=== PATIENT | female | born 1980 | race Caucasian/White ===

== ENCOUNTER → 2020-12-03 08:52 | Outpatient (BNVA) | payer OTHER, SELFPAY | PROVIDERS: Family Provider Family Medicine; Visit Provider Nurse Practitioner Women's Health | DX: Z01.419 Encounter for gynecological examination (general) (routine) without abnormal findings (principal); N92.0 Excessive and frequent menstruation with regular cycle | CPT/HCPCS: 84443; 84702; 85025; 88175 ==

== ENCOUNTER → 2020-12-14 15:36 | Outpatient (BNVA) | payer OTHER, SELFPAY | PROVIDERS: Family Provider Family Medicine; Visit Provider Nurse Practitioner Women's Health | DX: N92.0 Excessive and frequent menstruation with regular cycle (principal) | CPT/HCPCS: 76830 ==

== ENCOUNTER → 2021-02-17 09:04 | Outpatient (BNVA) | payer OTHER, SELFPAY | PROVIDERS: Family Provider Family Medicine; Visit Provider Obstetrics & Gynecology | DX: D25.9 Leiomyoma of uterus, unspecified (principal) | CPT/HCPCS: 87635 ==

== ENCOUNTER 2021-02-23 08:28 | Observation (INO) | payer OTHER, SELFPAY ==
[2021-02-21 11:32] LABS: Basophils # 0.1 10^3/uL (0.0-0.1); Basophils % 0.9 %; Eosinophils # 0.1 10^3/uL (0.0-0.8); Eosinophils % 0.9 %; Hematocrit 39.1 % (37.0-47.0); Lymphocytes # 1.9 10^3/uL (0.8-4.8); Lymphocytes % 27.8 %; Mean Corpuscular HGB Conc 30.7 g/dL (30.0-36.0); Mean Corpuscular Hemoglobin 26.2 pg (28.0-34.0); Mean Corpuscular Volume 85.4 fL (81-99); Mean Platelet Volume 10.7 fL (7.4-10.4); Monocytes # 0.5 10^3/uL (0.2-0.9); Monocytes % 6.5 %; Neutrophils # 4.41 10^3/uL (1.8-7.7); Neutrophils % 63.6 %; Nucleated Red Blood Cells % 0 %; Platelet Count 324 10^3/cmm (130-400); Red Blood Count 4.58 10^6/uL (4.1-5.3); Red Cell Distribution Width 14.3 % (12.1-15.1); White Blood Count 6.9 10^3/uL (4.0-10.0)
[2021-02-21 11:34] VITALS: BMI 26.7
[2021-02-21 11:44] LABS: Bilirubin Urine Neg (Negative); Blood Urine 2+ (Negative); Glucose Urine UA Norm (Normal); Ketones Urine Negative (Negative); Leukocyte Esterase Urine Negative (Negative); Nitrate Urine Negative (Negative); Protein Urine Neg (Negative); Urine Appearance Clear (CLEAR); Urine Color Straw (Yellow); Urobilinogen Urine Norm (Negative); pH Urine 5 (5-7)
[2021-02-21 11:45] LABS: Add Urine Microscopic? YES
[2021-02-21 11:52] LABS: Anion Gap 13.1 (5-19); Blood Urea Nitrogen 12 mg/dL (6-20); Carbon Dioxide 25 mmol/L (22-29); Chloride 105 mmol/L (98-107); Glomerular Filtration Rate 137.4 mL/min (90-130); Glucose 95 mg/dL (65-115); Osmolality Calculated 288 mOsm/kg (285-295); Potassium 4.1 mmol/L (3.5-5.1); Sodium 139 mmol/L (136-145)
[2021-02-21 11:56] LABS: Add Urine Culture? No; Bacteria Urine 1+ /hpf; Mucus Urine 1+ /hpf; RBC Urine 0-4 /hpf (0-2); Squamous Epithelial Cell Urine RARE /hpf (0-5)
--- NOTE | 2021-02-21 14:46 | P.ANESASSM_ITS ---
Pre-Anesthetic Assessment Pre-Anesthetic Assessment: Height/Weight: Height 1.6 m Weight 68.492 kg Proposed Procedure: Operation Date: 02/23/21 07:00 Proposed Procedures p Total Vaginal Hysterectomy 18035 D25.9 N93.9 R10.2 N94.10(Not Applicable) - Scott Chadwick MD Was Beta Nasim taken within 24 hours: N/A Was Clonidine taken within 24 hours: N/A Social: Social History: No alcohol and No tobacco Exam: Pre-Anes Outpt Exam: alert, oriented x 3, clear to auscultation bilaterally and regular rate & rhythm Airway: Submandibular: WNL Cervical ROM: WNL MP: 2 Dentition: Full History/ROS: No significant history except as noted CV/HEM: CV/HEM: Anemia Anesthetic Plan: ASA status: 2 Anesthesia: General Risk of > 500 ml blood loss (7ml/kg in children): No PFSH Anesthesia PFSH: Medical History Abnormal uterine bleeding (AUB) Chronic pelvic pain in female Dyspareunia in female Fibrocystic breast changes of both breasts Fibroid, uterine Heavy menses No pertinent past medical history neghx: htn,dm,thyroid,dvt/pe PCP: Dr. Colin PCB (post coital bleeding) Surgical History History of surgery on right wrist (~2013) Lump removed from wrist History of tonsillectomy and adenoidectomy at age 19 Family History Grandmother Breast cancer Maternal--dx age 69 Thyroid disease Paternal Family/Other Breast cancer Maternal Aunt--dx age late 50's Father Diabetes Heart disease Hypercholesteremia Hypertension Denies family history of Colon cancer Ovarian cancer Uterine cancer Stroke Social History (Updated 02/21/21 @ 08:09 by Kacie Pickett RN) Smoking and tobacco status: former smoker Quit status (tobacco): has quit using tobacco Former quit date comment: 02/08/2021 Alcohol intake: current Alcohol intake frequency: holidays/special occasions only Alcohol type: hard liquor Substance/Drug Use: never Female Reproductive History: Date of last menstrual period: 01/31/21 Data Anesthesia CBC & Chem 7: 02/21/21 11:05 02/21/21 11:05 Other Labs: Laboratory Results - last 48 hr 02/21/21 02/21/21 02/21/21 11:05 11:05 11:05 WBC 6.9 RBC 4.58 Hgb 12.0 Hct 39.1 MCV 85.4 MCH 26.2 L MCHC 30.7 RDW 14.3 Plt Count 324 MPV 10.7 H Neut % (Auto) 63.6 Lymph % (Auto) 27.8 [place] % (Auto) 6.5 Eos % (Auto) 0.9 Baso % (Auto) 0.9 Neut # (Auto) 4.41 Lymph # (Auto) 1.9 [place] # (Auto) 0.5 Eos # (Auto) 0.1 Baso # (Auto) 0.1 Nucleated RBC % (auto) 0 Nucleated RBCs # 0.0 Sodium 139 Potassium 4.1 Chloride 105 Carbon Dioxide 25 Anion Gap 13.1 BUN 12 Creatinine 0.5 GFR Calculation 137.4 H Glucose 95 Calculated Osmolality 288 Calcium 9.0 Urine Color Urine Appearance Urine pH Ur Specific Wagner Urine Protein Urine Glucose (UA) Urine Ketones Urine Blood Urine Nitrate Urine Bilirubin Urine Urobilinogen Ur Leukocyte Esterase Urine RBC Urine WBC Ur Squamous Epith Cells Amorphous Sediment Urine Bacteria Urine Mucus Blood Type A Positive Rho(D) Type Positive / 4+ Antibody Screen Negative 02/21/21 11:15 WBC RBC Hgb Hct MCV MCH MCHC RDW Plt Count MPV Neut % (Auto) Lymph % (Auto) [place] % (Auto) Eos % (Auto) Baso % (Auto) Neut # (Auto) Lymph # (Auto) [place] # (Auto) Eos # (Auto) Baso # (Auto) Nucleated RBC % (auto) Nucleated RBCs # Sodium Potassium Chloride Carbon Dioxide Anion Gap BUN Creatinine GFR Calculation Glucose Calculated Osmolality Calcium Urine Color Straw Urine Appearance Clear Urine pH 5 Ur Specific Wagner 1.020 Urine Protein Neg Urine Glucose (UA) Norm Urine Ketones Negative Urine Blood 2+ H Urine Nitrate Negative Urine Bilirubin Neg Urine Urobilinogen Norm Ur Leukocyte Esterase Negative Urine RBC 0-4 H Urine WBC None Ur Squamous Epith Cells Rare Amorphous Sediment Not Reportable Urine Bacteria 1+ H Urine Mucus 1+ Blood Type Rho(D) Type Antibody Screen Cardiac Studies: No Data to Display
[2021-02-23] VITALS (17 sets, daily range): BP systolic 93–140; BP diastolic 53–83; PULSE 60–97; RESP 14–19; TEMP 36.4–37; O2SAT 96–100
[2021-02-23] MEDS: sodium chloride 0.9% 500 ML IV (06:25)
[2021-02-23 06:28] LABS: OR HCG Qualitative Urine Negative (Negative)
[2021-02-23] MEDS: scopolamine 1.5 Patch 1 PATCH TRANSDERMA (06:29)
--- NOTE | 2021-02-23 06:46 | W.PM.OPSUD ---
Surgery/Procedure H&P Update DATE OF PROCEDURE: February 23, 2021 DATE H&P PERFORMED: 02/21/21 H&P UPDATE INFORMATION: I have reviewed H&P completed within last 30 days, I have examined patient prior to procedure and No changes to prior documentation PREOP DIAGNOSIS: Uterine fibroid, chronic pelvic pain, abnormal uterine bleeding, dyspareuni PLANNED PROCEDURE: Operation Date: 02/23/21 07:00 Proposed Procedures p Total Vaginal Hysterectomy 47325 D25.9 N93.9 R10.2 N94.10(Not Applicable) - Scott Chadwick MD
[2021-02-23] MEDS: ceFOXitin 2,000 MG in sodium chloride 0.9% (plus) 50 ML 100 MG IV (07:02)
--- NOTE | 2021-02-23 07:20 | P.ANESUD_ITS ---
Pre-Anesthetic Update Pre-Anesthetic Assessment: Date of Surgery/Procedure: 02/23/21 Preop Hilary gnosis: Uterine fibroid, chronic pelvic pain, abnormal uterine bleeding, dyspareuni Proposed Procedure: Operation Date: 02/23/21 07:00 Proposed Procedures p Total Vaginal Hysterectomy 47760 D25.9 N93.9 R10.2 N94.10(Not Applicable) - Scott Chadwick MD Any changes to Pre-Anesthetic Assessment?: No Last Intake: Intake Last Liquid Date 02/22/21 Last Liquid Time 19:30 Last Solid Date 02/22/21 Last Solid Time 19:30 Labs Last 48hrs: Laboratory Results - last 48 hr 02/21/21 02/21/21 02/21/21 11:05 11:05 11:05 WBC 6.9 RBC 4.58 Hgb 12.0 Hct 39.1 MCV 85.4 MCH 26.2 L MCHC 30.7 RDW 14.3 Plt Count 324 MPV 10.7 H Neut % (Auto) 63.6 Lymph % (Auto) 27.8 [place] % (Auto) 6.5 Eos % (Auto) 0.9 Baso % (Auto) 0.9 Neut # (Auto) 4.41 Lymph # (Auto) 1.9 [place] # (Auto) 0.5 Eos # (Auto) 0.1 Baso # (Auto) 0.1 Nucleated RBC % (a uto) 0 Nucleated RBCs # 0.0 Sodium 139 Potassium 4.1 Chloride 105 Carbon Dioxide 25 Anion Gap 13.1 BUN 12 Creatinine 0.5 GFR Calculation 137.4 H Glucose 95 Calculated Osmolal ity 288 Calcium 9.0 Urine Color Urine Appearance Urine pH Ur Specific Gravit y Urine Protein Urine Glucose (UA) Urine Ketones Urine Blood Urine Nitrate Urine Bilirubin Urine Urobilinogen Ur Leukocyte Jody ase Urine RBC Urine WBC Ur Squamous Epith Cells Amorphous Sediment Urine Bacteria Urine Mucus Urine HCG, Qual Blood Type A Positive Rho(D) Type Positive / 4+ Antibody Screen Negative 02/21/21 02/23/21 11:15 06:23 WBC RBC Hgb Hct MCV MCH MCHC RDW Plt Count MPV Neut % (Auto) Lymph % (Auto) [place] % (Auto) Eos % (Auto) Baso % (Auto) Neut # (Auto) Lymph # (Auto) [place] # (Auto) Eos # (Auto) Baso # (Auto) Nucleated RBC % (a uto) Nucleated RBCs # Sodium Potassium Chloride Carbon Dioxide Anion Gap BUN Creatinine GFR Calculation Glucose Calculated Osmolal ity Calcium Urine Color Straw Urine Appearance Clear Urine pH 5 Ur Specific Gravit y 1.020 Urine Protein Neg Urine Glucose (UA) Norm Urine Ketones Negative Urine Blood 2+ H Urine Nitrate Negative Urine Bilirubin Neg Urine Urobilinogen Norm Ur Leukocyte Jody ase Negative Urine RBC 0-4 H Urine WBC None Ur Squamous Epith Cells Rare Amorphous Sediment Not Reportable Urine Bacteria 1+ H Urine Mucus 1+ Urine HCG, Qual Negative Blood Type Rho(D) Type Antibody Screen Vitals: Temperature 98.2 F 02/23/21 06:12 Temperature Source Temporal Artery S can 02/23/21 06:12 Pulse Rate 72 02/23/21 06:12 Respiratory Rate 18 02/23/21 06:12 Blood Pressure 113/83 02/23/21 06:12 Blood Pressure Sharona n 93 02/23/21 06:12 Pulse Oximetry 100 02/23/21 06:12 Oxygen Delivery Me thod 02/23/21 06:12 Exam: Pre-Anes Outpt Exam: alert, oriented x 3, clear to auscultation bilaterally and regular rate & rhythm Cardiac Studies: No Data to Display
[2021-02-23] MEDS: fentaNYL 50 mcg/mL INJ 2mL IVP (08:53)
[2021-02-23] MEDS: HYDROcodone-acetaminophen 5-325 mg Tablet PO ×2 (10:28→16:28)
--- NOTE | 2021-02-23 10:28 | PM.OP ---
Operative Report Date of procedure: February 23, 2021 Pre-op Diagnosis: Uterine fibroid, chronic pelvic pain, abnormal uterine bleeding, dyspareuni Post-op diagnosis: same Procedure Done: Total vaginal hysterectomy Specimens removed/disposition: Uterus Pathology: Uterus Surgeon: Scott Chadwick MD Anesthesia: General Estimated blood loss (mL): 125 IV fluids (mL): 600 Urine output (mL): 100 Complications: None Findings: Enlarged irregular uterus Condition: stable Disposition: PACU Brief History: 40-year-old female with a history of chronic pelvic pain, uterine fibroids and abnormal uterine bleeding unresponsive to medical management. Procedure: After informed consent and risks, benefits, indications and alternatives reviewed with the patient was taken to the operating room. The patient was placed in dorsal lithotomy position prepped, and draped in the usual sterile fashion. The pre-procedure timeout verifying the correct patient, procedure, site and side, could not requirements was performed and acknowledge by the OR team. A Carreon catheter was placed. A Bookwalter vaginal retractor was placed into the vagina in usual manner visualize the cervix. Cervix was grasped with a single tooth tenaculum and circumferentially infiltrated with 2% Xylocaine with epinephrine. Then cervix was circumferentially incised with bovie and the bladder was dissected off the pubovesical cervical fascia anteriorly with a sponge stick and Metzenbaum scissors. The anterior peritoneal reflection was identified and the anterior cul-de-sac was entered sharply with Metzenbaum scissors. The same procedure was performed posteriorly and a posterior colpotomy was made through the posterior cul-de-sac space without difficulty and the posterior blade of the Bookwalter vaginal retractor was advanced posteriorly into the cul-de-sac. At this time, the left and right uterosacral ligaments were isolated and ligated with 0 Vicryl. The Enseal device was placed over the uterosacral ligaments on either side and was then used in a serial fashion up through the cardinal ligaments bilaterally cross-clamped, cut, and sealed with the Enseal device. Finally, the uterine arteries were cross-clamped, cut, sealed and ligated with the Enseal device. Hemostasis was assured. The broad ligaments were then serially clamped, sealed and cut with the Enseal device on both sides. Excellent hemostasis was visualized. Both cornua were clamped, sealed and cut with the Enseal device. Then the pedicles were then suture ligated with excellent hemostasis. The uterus was excised and submitted for pathologic evaluation. No other abnormalities were noted in the pelvic cavity. The peritoneum was then closed in a pursestring fashion with 0 Vicryl suture. The vaginal cuff angles were closed with [id number] #0 Vicryl suture on both sides and transfixed with the ipsilateral cardinal and uterosacral ligaments. The remainder of the vaginal cuff was closed with #0 Vicryl in a running locked fashion. At this time, instruments were removed from the vagina at hemostasis assured. The patient was taken out of supine position and awakened from the general anesthesia. The patient tolerated the procedure well and was taken to the PACU recovery room in a stable condition. Sponge, lap, needle and instruments counts were correct x3.
[2021-02-23] MEDS: dextrose 5%-lactated ringers 1,000 ML 125 ML IV (11:38)
[2021-02-23] MEDS: ketorolac 30 mg/mL INJ IVP ×2 (13:41→18:24)
--- NOTE | 2021-02-23 14:31 | ANE.PACU2 ---
Inpatient post-anesthesia follow up: Airway intact: Yes Vital signs: Temperature 97.7 F Pulse Rate 68 Respiratory Rate 16 Blood Pressure 106/66 Pulse Oximetry 98 Oxygen Delivery Me thod Room Air Oxygen Flow Rate 8 Fraction of Inspir ed Oxygen Hydration adequate: Yes Nausea and vomiting: No Pain level: 2 Mental status: Baseline
[2021-02-23] MEDS: docusate sodium 100 mg Capsule PO (18:24)
[2021-02-24] MEDS: ketorolac 30 mg/mL INJ IVP (00:58)
[2021-02-24 05:00] VITALS: BP 109/68; PULSE 72; RESP 16; O2SAT 98
[2021-02-24 06:04] LABS: Hematocrit 31.8 % (37.0-47.0); Hemoglobin 9.9 g/dL (11.5-15.3); Mean Corpuscular HGB Conc 31.1 g/dL (30.0-36.0); Mean Corpuscular Volume 86.9 fL (81-99); Mean Platelet Volume 10.7 fL (7.4-10.4); Platelet Count 283 10^3/cmm (130-400); Red Blood Count 3.66 10^6/uL (4.1-5.3); Red Cell Distribution Width 14.5 % (12.1-15.1); White Blood Count 10.8 10^3/uL (4.0-10.0)
[2021-02-24] MEDS: HYDROcodone-acetaminophen 5-325 mg Tablet PO (07:54)
[2021-02-24] MEDS: docusate sodium 100 mg Capsule PO (07:55)
[2021-02-24] MEDS: cetirizine 10 mg Tablet PO (09:07)
--- NOTE | 2021-02-24 10:44 | PM.OBGYDC ---
Discharge Providers BOWLING FLOOR DESK CLERK Date of Admission: 02/23/21 08:28 Date of Discharge: 02/24/21 Attending Provider at Admission: Scott Chadwick MD Attending Provider at Discharge: Scott Chadwick MD Primary Care Provider: Willi Colin Diagnoses at Discharge Discharge Diagnosis (1) Status post vaginal hysterectomy: Status: Acute Reason for Visit Reason for Visit: total vaginal hysterrectomy Hospital Course Hospital Course Mrs. Monzon 40-year-old female with a history of chronic pelvic pain, dyspareunia, abnormal uterine bleeding unresponsive to medical treatment admitted for planned total vaginal hysterectomy. The vaginal hysterectomy was performed without complications. Overnight postop observation uneventful. She is ambulating without difficulty. Tolerating diet well. She is afebrile and hemodynamically stable. Physical Exam Narrative: EXAM NARRATIVE: GA: Alert and oriented ?3. HEENT: WNL. Heart: Regular rate and rhythm. Lungs: Clear to auscultation bilaterally. Abdomen: Bowel sounds present, nontender, minimal tenderness. QUALITY ASSURANCE ANALYST: No bleeding. Extremities: No edema, no cyanosis, no calves pain. Urinary Catheter Management^: Carreon: Cath Placed During This Visit: yes, but has since been removed by the nurse Reason for Continuing Indwelling Catheter: Decision to DC Catheter Urinary Catheter Date of Insertion: 02/23/21 Urinary Catheter Time of Insertion: 07:34 Date Urinary Catheter Removed: 02/24/21 Time Urinary Catheter Discontinued: 05:00 Discharge Data Data Completed and Pending: Pending at discharge Category Date Time Status Pathology: Surgic al [PTH] Routine Pth 02/23/21 08:07 Received Labs from last 24 hours 02/24/21 05:20 WBC 10.8 H RBC 3.66 L Hgb 9.9 L Hct 31.8 L MCV 86.9 MCH 27.0 L MCHC 31.1 RDW 14.5 Plt Count 283 MPV 10.7 H Vitals: Last Vital Signs Temp 98.6 F 02/23/21 20:34 Pulse 72 02/24/21 05:00 Resp 16 02/24/21 05:00 BP 109/68 02/24/21 05:00 Pulse Ox 98 02/24/21 05:00 Discharge Plan Discharge Patient Disposition: Home Condition: Stable Prescriptions: New hydrocodone-acetaminophen 5-325 mg tablet 1 tab PO Q4H PRN (Reason: pain) Qty: 30 RF: 0 Iron (ferrous sulfate) 325 mg (65 mg iron) tablet 325 mg PO BID Qty: 60 RF: 0 Colace 100 mg capsule 100 mg PO BID Qty: 60 RF: 0 acetaminophen 325 mg capsule 325 mg PO Q4H PRN (Reason: fever or pain) Qty: 60 RF: 0 Continued cetirizine 10 mg tablet 10 mg PO DAILY RF: 0 ibuprofen 600 mg tablet 600 mg PO Q8H PRN (Reason: Pain, Mild) RF: 0 Discharge Orders: Discharge Order (Routine); Ordered 02/24/21 Ordered By: Scott Chadwick Referrals: Scott Chadwick MD [Physician] - 2 weeks Discharge Diet: Usual diet Discharge Activity: Increase activity as tolerated Patient Instructions: Vaginal Hysterectomy (DC), Opioid Safety Activity Restrictions/Additional Instructions: 1. Please call [facility] on next working day to make your post-operative appointment in 2 weeks. 2. Please stay home until you come back to the clinic on first post-operative check up. 3. Please follow instructions on your medications CAREFULLY. 4. If you have abdominal incision, do not cover it unless dressing is necessary because of drainage. OK to shower, but avoid bath. Leave steri-strips until they fall off. If they are still on one week after surgery, you may remove them. 5. If you had vaginal surgery or vaginal repair, Dr. Chadwick may instruct you to take SITZ bath. 6. Yellow, blood tinged odorous vaginal discharge is usually normal after hysterectomy or vaginal surgeries. 7. No sexual intercourse, tampons, or douches until you are completely released from the post-operative care in 6 weeks. 8. Avoid constipation by eating right and maybe using some Metamucil or Milk of Magnesia. 9. All prescription refills are given during the working hours. Please do no wait till it runs out. Call the clinic at [phone] before your medication runs out. The clinic will get in touch with your doctor to prescribe medications if necessary. 10. Please remain within 40 mile radius from our hospital because emergencies do happen now and then during the post-operative period. 11. If you have stairs at home, take one step at a time slowly and minimize the number of trips. It helps to stay in one floor for the next few days. No lifting except what you can lift by one hand until you are released from the post-operative care. 12. Driving is discouraged until you are well healed. It may be 3-4 weeks before you feel strong enough to drive. You should be able to turn and look through the rear window without pain and you should be able to push the brake pedal very hard without pain before you drive. No fast rules, but SAFETY should be your primary concern. DO NOT drive if you are on sedating medications such as narcotics. 13. Call the clinic (during working hours) to make urgent appointment or go to the Emergency room, if any of the following occurs: i. Vaginal bleeding becomes heavy, more than a period. ii. Incision becomes red and sore, or drains pus. iii. Your temperature is over 100.4 or you have chill. iv. IV site becomes red and swollen (a little ``knot?? is usually OK) v. Persistent nausea and vomiting vi. Persistent constipation or diarrhea vii. Rash or allergic reaction to medications. Discharge Attestations BOWLING FLOOR DESK CLERK Time Spent in Discharge Care*: greater than 30 min Coding Level of Care Code Acute Proof Sorter for Chg Fwd Diagnoses Status post vaginal hysterectomy Z90.710
[2021-02-24 12:00] VITALS: BP 105/52; PULSE 70; RESP 16; TEMP 36.6; O2SAT 99
== END 2021-02-24 12:00 | disposition home or self-care (01) ==
LOC: OBGYN 08:30
PROVIDERS: Anesthesiology; Admitting Provider Obstetrics & Gynecology; PCP Family Medicine; Visit Provider Obstetrics & Gynecology
PROC: (CPT 58260; principal; 2021-02-23 07:00)
DX: D25.9 Leiomyoma of uterus, unspecified (principal); Z87.891 Personal history of nicotine dependence; N93.9 Abnormal uterine and vaginal bleeding, unspecified; R10.2 Pelvic and perineal pain; G89.29 Other chronic pain; Z82.49 Family history of ischemic heart disease and other diseases of the circulatory system; Z83.3 Family history of diabetes mellitus; Z80.3 Family history of malignant neoplasm of breast
CPT/HCPCS: 58260; 36415; 80048; 81001; 81025; 84703; 85025; 85027; 86850; 86900; 88307; G0378; J0694; J1100; J1170; J1200; J1885; J2250; J2405; J2704; J3010; J3490; J7040

== ENCOUNTER 2022-07-06 13:21 | Outpatient (CLI) | payer OTHER, SELFPAY ==
--- NOTE | 2022-07-06 13:28 | MM_ITS ---
WS: [id number] BILATERAL 3D TOMOSYNTHESIS DIGITAL SCREENING MAMMOGRAPHY WITH CAD CLINICAL INFORMATION: Z12.39 - Encounter for other screening for malignant neop... HISTORY: Screening mammogram. RIGHT breast soreness COMPARISON: None. TECHNIQUE: Bilateral CC and MLO views. FINDINGS: The breasts are composed of heterogeneous fibroglandular density tissue, which can limit the detectio n of small underlying mass lesions. No suspicious mass, asymmetry, calcifications, or architectural d istortion. No evidence of malignancy. A few incidental punctate calcifications. MM/[place] [id number] IMPRESSION: BI-RADS: 2-Benign FOLLOW UP: 1 Year Follow-up Recommend return to annual screening mammography.
== END 2022-07-06 13:22 | disposition home or self-care (01) ==
LOC: RAD 13:23
PROVIDERS: PCP Family Medicine; Visit Provider Obstetrics & Gynecology
DX: Z12.31 Encounter for screening mammogram for malignant neoplasm of breast (principal)
CPT/HCPCS: 77063; 77067

== ENCOUNTER 2023-07-09 08:22 | Outpatient (CLI) | payer MEDICAID, SELFPAY ==
--- NOTE | 2023-07-09 08:36 | MM_ITS ---
WS: [id number] SCREENING DIGITAL BREAST TOMOSYNTHESIS MAMMOGRAM WITH CAD HISTORY: Z12.39 - Encounter for other screening for malignant neop... COMPARISON: 07/06/2022 Bilateral CC and MLO with tomosynthesis and synthetic mammography submitted. Computer aided detection analyzed. Breast composition: The breasts are heterogeneously dense, which may obscure small masses. Well-circu mscribed 8.5 x 5.8 mass in the lateral LEFT breast posteriorly. This is probably near the 3:00 axis. Seen best on the CC projection. Otherwise no suspicious masses. IMPRESSION: MM/[place] [id number] BI-RADS: 0-Incomplete: Need additional imaging evaluation FOLLOW UP: Need Additional Imaging LEFT breast ultrasound, limited. Lateral LEFT breast at 3:00.
== END 2023-07-09 08:23 | disposition home or self-care (01) ==
LOC: RAD 08:23
PROVIDERS: PCP Family Medicine; Visit Provider Nurse Practitioner Women's Health
DX: Z12.31 Encounter for screening mammogram for malignant neoplasm of breast (principal)
CPT/HCPCS: 77063; 77067

== ENCOUNTER 2023-08-07 13:18 | Outpatient (CLI) | payer OTHER, SELFPAY ==
--- NOTE | 2023-08-07 13:45 | US_ITS ---
WS: [id number] ULTRASOUND LEFT BREAST HISTORY: LEFT breast mass on screening mammogram. COMPARISON: 07/09/2023 and 07/06/2022 TECHNIQUE: 2-D and Doppler. Well-circumscribed mass with a fatty hilum is identified at 2:00, 4 cm from the nipple in the LEFT br east. This corresponds to the mass seen by recent screening mammography. Mass measures 7 x 5 x 7 mm a nd is most consistent with a benign lymph node. IMPRESSION: US/US breast LT limited* [id number] BI-RADS: 2-Benign FOLLOW-UP: 1 Year Follow-up
== END 2023-08-07 13:19 | disposition home or self-care (01) ==
LOC: RAD 13:18
PROVIDERS: PCP Family Medicine; Visit Provider Nurse Practitioner Women's Health
DX: N63.21 Unspecified lump in the left breast, upper outer quadrant (principal); R92.8 Other abnormal and inconclusive findings on diagnostic imaging of breast
CPT/HCPCS: 76642

== ENCOUNTER 2024-07-31 13:10 | Outpatient (CLI) | payer OTHER, SELFPAY ==
--- NOTE | 2024-07-31 13:30 | MM_ITS ---
WS: [id number] BILATERAL SCREENING DIGITAL TOMOSYNTHESIS MAMMOGRAM WITH CAD HISTORY: Z12.31 - Encounter for screening mammogram for malignant ... COMPARISON: 07/09/2023, 07/06/2022 Bilateral CC and MLO views with tomosynthesis and synthetic mammography submitted. Computer aided det ection analyzed. Breast composition: The breasts are heterogeneously dense, which may obscure small masses. No suspici ous masses, microcalcifications or architectural distortion. Well-circumscribed mass in the lateral s uperior LEFT breast measures 3.7 x 5.6 mm. This mass has been present on prior studies without increa se in size. This is probably a small lymph node. Prior ultrasound on 08/07/2023 demonstrated a lymph node at this location. MM/MM [facility] tomosynthesis [id number] IMPRESSION: BI-RADS: 2 - Benign FOLLOW UP: 1 Year Follow-up
== END 2024-07-31 13:11 | disposition home or self-care (01) ==
LOC: RAD 13:10
PROVIDERS: PCP Family Medicine; Visit Provider Nurse Practitioner Women's Health
DX: Z12.31 Encounter for screening mammogram for malignant neoplasm of breast (principal); R92.333 Mammographic heterogeneous density, bilateral breasts; N63.21 Unspecified lump in the left breast, upper outer quadrant
CPT/HCPCS: 77063; 77067

== ENCOUNTER → 2024-10-22 10:31 | Outpatient (BNVA) | payer OTHER, SELFPAY | PROVIDERS: PCP Family Medicine; Visit Provider Nurse Practitioner Women's Health | DX: Z13.228 Encounter for screening for other metabolic disorders (principal); Z13.1 Encounter for screening for diabetes mellitus; N95.1 Menopausal and female climacteric states; R53.83 Other fatigue | CPT/HCPCS: 80053; 82306; 82607; 82670; 82728; 82746; 83036; 83540; 84270; 84403; 84439; 84443; 85025 ==